=== PATIENT | male | born 1960 ===

== ENCOUNTER 2016-12-20 10:48 | Outpatient (CLI) | payer MEDICARE, MEDICAID ==
--- NOTE | 2016-12-24 10:43 | RAD ---
MODIFIED BARIUM SWALLOW IN THE PRESENCE OF A SPEECH THERAPIST: Date: 12/20/16 HISTORY: Dysphagia following other/unspecified cerebrovascular disease, dysphagia unspecified, dysphagia orop haryngeal phase, feeding difficulties. FINDINGS/IMPRESSION: No laryngeal penetration or devendra aspiration is seen. There is residue seen in the piriform sinuses. Please see recommendations of the speech therapist for further management. POS: JEFE
== END 2016-12-20 10:49 | disposition home or self-care (01) ==
PROVIDERS: ATTEND Hospitalist
DX: I69.891 Dysphagia following other cerebrovascular disease (principal); R13.10 Dysphagia, unspecified; R13.12 Dysphagia, oropharyngeal phase; R63.3 Feeding difficulties
CPT/HCPCS: 74230; G8996-GN-CK; G8997-GN-CK; G8998-GN-CK

== ENCOUNTER 2016-12-27 09:19 | Day surgery (SDC) | payer MEDICARE, MEDICAID ==
[2016-12-26 13:21] VITALS: BMI 20.1
[2016-12-27] MEDS ORDERED: Propofol 200 MG/20 ML VIAL ONE (12:48)
[2016-12-27] MEDS ORDERED: Lidocaine 1% PF 5 ML VIAL ONE (12:48)
--- NOTE | 2016-12-27 13:24 | OP ---
PREOPERATIVE DIAGNOSIS: Persistent nausea and vomiting. DESCRIPTION OF THE PROCEDURE: After informed consent was obtained, the patient was placed in the le ft lateral decubitus position. Anesthesia was administered per the Anesthesia Department. Forward- viewing endoscope was inserted into the esophagus under direct visualization with ease and passed to the second portion of the duodenum with ease. Second portion of duodenum and duodenal bulb were no rmal. The pylorus, antrum, body, fundus, and cardia were normal except for very large hiatal hernia . The esophagus was somewhat dilated and foreshortened with a GE junction at 32 cm. It was unclear whether the GE junction was stricture, so an 18 mm balloon was put across the area and inflated for 1 minute, deflated, and removed. There was some mild post-dilatation bleeding indicating possibly a mild stricture. ASSESSMENT: 1. Mild esophageal stricture - status post balloon dilatation. 2. Very large hiatal hernia. 3. Dilated esophagus - I think this is more on the basis of his very large hiatal hernia. RECOMMENDATIONS: 1. PPI. 2. Small frequent meals. 3. Sit upright during and after meals.
--- OUTSIDE RECORDS SUMMARY | 2016-12-28 02:26 | XMS | Clinical Summary ---
:[address] [facility] Address [address] [place] [phone] Phone Care Team Providers Name Role Phone , Primary Care Provider Unavailable Allergies Not on File Current Medications Not on file Active Problems Not on file Social History Tobacco Use Types Packs/Day Years Used Date Never Assessed Sex Assigned at Date Recorded Not on file Last Filed Vital Signs Not on file Plan of Treatment Not on file Results Not on filefrom Last 3 Months
== END 2016-12-27 14:20 | disposition home or self-care (01) ==
LOC: SDC 09:19
PROVIDERS: ATTEND Internal Medicine Gastroenterology
PROC: 0D748ZZ Dilation of Esophagogastric Junction, Via Natural or Artificial Opening Endoscopic (ICD-10-PCS; principal; 2016-12-27)
DX: K22.2 Esophageal obstruction (principal); K44.9 Diaphragmatic hernia without obstruction or gangrene; R11.2 Nausea with vomiting, unspecified; Z98.890 Other specified postprocedural states; Z87.730 Personal history of (corrected) cleft lip and palate
CPT/HCPCS: J2001; J2704